=== PATIENT | female | born 1980 | race Caucasian/White ===

== ENCOUNTER 2016-07-03 10:18 | Emergency (ER) | payer BC ==
[~2016-07-03] VITALS: Ht 167.6 cm; Wt 90.0 kg
[2016-07-03 10:24] VITALS: BP 150/98; PULSE 86; RESP 16; TEMP 98.3; O2SAT 97
[2016-07-03] MEDS ORDERED: ABX (10:51)
--- NOTE | 2016-07-03 10:52 | PD ---
HPI Chief Complaint: Musculoskeletal Complaint Time Seen by Provider: 10:43 Travel History International Travel<30 days: No Contact w/Intl Traveler<30days: No Traveled to known affect area: No History of Present Illness HPI The patient was seen and examined in the presence of the nurse. This patient complains of injury to her left knee. This happened this morning., Duration 2 hours. She twisted her left knee while exercising. No significant trauma to it. She was able to walk but there was pain with weightbearing. PFSH Past Medical History ?: Not LMP: 06/13/16 Social History Alcohol Use: No Tobacco Use: No Substance Use: No Allergies-Medications (Allergen,Severity, Reaction): Coded Allergies: No Known Allergies (Unverified , 07/03/16) Review of Systems General / Constitutional: No: Fever HENT: No: Headaches Cardiovascular: No: Chest Pain or Discomfort Physical Exam Narrative SKIN: Inspection shows no rash or ulcers. Palpation shows no induration or nodules. Psych: Normal mood and affect. Normal insight and judgment. Left knee: Stable joint with good range of motion. No effusion or bony tenderness. Data Data Last Documented VS Vital Signs Date Time Temp Pulse Resp B/P Pulse Ox O2 Delivery O2 Flow Rate FiO2 07/03/16 10:24 98.3 86 16 150/98 97 Orders Crutches (07/03/16 10:49) [facility] Medical Decision Making Medical Screen Exam Complete: Yes Emergency Medical Condition: Yes Medical Record Reviewed: Yes Differential Diagnosis Ligament tear, cartilage injury, contusion Narrative Course I have reviewed the patient's electronic medical record. Presentation seems most consistent with an acute soft tissue injury to the left knee. I think x-rays are exceedingly low yield and are not being done right now Supportive care discussed including ice and elevation and no weightbearing and anti-inflammatories. I gave her crutches. She will follow-up with orthopedist Diagnosis Primary Impression: Soft tissue injury of left knee Additional Instructions: The patient was advised to follow up with orthopedist and return if they worsen. Ice and elevate and use crutches Med/Other Pt SpecificInfo: Other Disposition: 01 DISCHARGE HOME Condition: Stable Paul Chen MD Jul 03, 2016 10:52
== END 2016-07-03 11:01 | disposition home or self-care (01) ==
LOC: PHEFT 10:18
DX: S89.92XA Unspecified injury of left lower leg, initial encounter (principal); X50.1XXA Overexertion from prolonged static or awkward postures, initial encounter; Y93.89 Activity, other specified
CPT/HCPCS: 99283; E0113